=== PATIENT | female | born 1985 | race African-American/Black ===

== ENCOUNTER → 2020-02-06 | Outpatient (CLI) | payer OTHER | LOC: SJCVCIMAG 10:02 | DX: R00.2 Palpitations (principal) ==

== ENCOUNTER → 2021-04-13 | Outpatient (CLI) | payer OTHER | LOC: SJCVCIMAG 08:34 | PROVIDERS: ATTEND Internal Medicine | DX: I34.0 Nonrheumatic mitral (valve) insufficiency (principal); I42.2 Other hypertrophic cardiomyopathy ==